=== PATIENT | male | born 1950 | race Caucasian/White ===

== ENCOUNTER 2016-10-27 21:13 | Observation (INO) | payer MEDICARE, OTHER ==
[~2016-10-27] VITALS: Ht 180.3 cm; Wt 99.0 kg
[2016-10-28] MEDS ORDERED: ETODOLAC200 MG PO (02:16)
[2016-10-28] MEDS ORDERED: NORCO 10-325 T1 EACH PO (02:16)
[2016-10-28] MEDS ORDERED: VALIUM 5 MG TAB5 MG PO (02:16)
[2016-10-28] MEDS ORDERED: VENTOLIN INH (02:17)
[2016-10-28] MEDS ORDERED: NEURONTIN 400400 MG PO (02:17)
[2016-10-30 06:05] LABS: HEMOGLOBIN 14.1 gm/dl (14.0-17.5)
[2016-10-30 06:27] LABS: BUN/CREATININE RATIO 28 (0-10)
[2016-10-31] MEDS ORDERED: ASPIRIN CHEWABL81 MG PO (10:37)
[2016-10-31] MEDS ORDERED: PERCOCET 10-321 EACH PO (10:41)
[2016-10-31] MEDS ORDERED: TORADOL 10 MG T10 MG PO (10:44)
[2016-10-31] MEDS ORDERED: PROTONIX40 MG PO (10:45)
== END 2016-10-31 11:21 | disposition home or self-care (01) ==
LOC: M/S 21:13
PROVIDERS: Internal Medicine; ADMIT Internal Medicine
DX: S22.089A Unspecified fracture of T11-T12 vertebra, initial encounter for closed fracture (principal); R94.31 Abnormal electrocardiogram [ECG] [EKG]; J44.9 Chronic obstructive pulmonary disease, unspecified; I25.10 Atherosclerotic heart disease of native coronary artery without angina pectoris; F10.10 Alcohol abuse, uncomplicated; F17.210 Nicotine dependence, cigarettes, uncomplicated; Z79.891 Long term (current) use of opiate analgesic; Z79.899 Other long term (current) drug therapy; Z98.890 Other specified postprocedural states; W19.XXXA Unspecified fall, initial encounter
CPT/HCPCS: 36415; 72146; 72148; 80048; 82550; 82553; 84484; 85014; 85018; 85610; 85730; 93005; 94640; 94664; 97110; 97116; G0378; G0379; G0480; J1885; J2270

== ENCOUNTER 2017-01-04 12:32 | Inpatient (IN) | payer MEDICARE, OTHER ==
[~2017-01-04] VITALS: Ht 182.9 cm; Wt 101.0 kg
[~2017-01-04 12:32] MED LIST: ASPIRIN CHEWABL81 MG PO; ETODOLAC200 MG PO; NEURONTIN 400400 MG PO; NORCO 10-325 T1 EACH PO; PERCOCET 10-321 EACH PO; PROTONIX40 MG PO; TORADOL 10 MG T10 MG PO; VALIUM 5 MG TAB5 MG PO; VENTOLIN INH
[2017-01-04] MEDS ORDERED: NORCO 10-325 T1 EACH PO (18:12)
[2017-01-04] MEDS ORDERED: LISINOPRIL40 MG PO (18:13)
[2017-01-04] MEDS ORDERED: SIMVASTATIN20 MG PO (18:13)
[2017-01-04] MEDS ORDERED: TOPROL XL 25 MG25 MG PO (18:14)
[2017-01-05 05:01] LABS: HEMOGLOBIN 15.2 gm/dl (14.0-17.5); RED BLOOD COUNT 4.81 M/UL (4.20-5.50); WHITE BLOOD COUNT 9.3 K/UL (4.5-11.0)
[2017-01-05 05:16] LABS: BUN/CREATININE RATIO 17 (0-10)
--- NOTE | 2017-01-05 12:56 | NUR ---
SACHA VILLATORO INFORMED OF TROPONIN OF 0.17
[2017-01-06 06:12] LABS: HEMOGLOBIN 13.9 gm/dl (14.0-17.5); RED BLOOD COUNT 4.44 M/UL (4.20-5.50); WHITE BLOOD COUNT 8.3 K/UL (4.5-11.0)
[2017-01-06 06:26] LABS: BUN/CREATININE RATIO 24 (0-10)
[2017-01-07 03:24] LABS: HEMOGLOBIN 13.5 gm/dl (14.0-17.5); RED BLOOD COUNT 4.27 M/UL (4.20-5.50); WHITE BLOOD COUNT 6.7 K/UL (4.5-11.0)
[2017-01-07 03:28] LABS: BUN/CREATININE RATIO 20 (0-10)
[2017-01-08 04:32] LABS: HEMOGLOBIN 14.3 gm/dl (14.0-17.5); RED BLOOD COUNT 4.5 M/UL (4.20-5.50); WHITE BLOOD COUNT 5.7 K/UL (4.5-11.0)
[2017-01-08 04:47] LABS: BUN/CREATININE RATIO 17 (0-10)
[2017-01-09 04:20] LABS: HEMOGLOBIN 15.2 gm/dl (14.0-17.5); RED BLOOD COUNT 4.81 M/UL (4.20-5.50)
[2017-01-09 04:46] LABS: BUN/CREATININE RATIO 21 (0-10)
[2017-01-09] MEDS ORDERED: CORDARONE 200M200 MG PO (13:45)
[2017-01-09] MEDS ORDERED: IMDUR ER TAB 3030 MG PO (13:49)
[2017-01-09] MEDS ORDERED: MULTIVITAMINS1 EAC1 PO (13:50)
[2017-01-09] MEDS ORDERED: HABITROL 21 MG P1 EA TD (13:53)
[2017-01-09] MEDS ORDERED: BRILINTA 90 MG90 MG PO (13:55)
[2017-01-09] MEDS ORDERED: ACETAMINOPHEN325 MG PO (13:59)
[2017-01-09] MEDS ORDERED: NITROGLYCERIN0.4 MG SL (14:01)
== END 2017-01-09 14:52 | disposition home or self-care (01) | DRG 247 ==
LOC: PROG CARE 12:32
PROVIDERS: Internal Medicine Infectious Disease; Internal Medicine Interventional Cardiology; ADMIT Internal Medicine
PROC: 027034Z Dilation of Coronary Artery, One Artery with Drug-eluting Intraluminal Device, Percutaneous Approach (ICD-10-PCS; principal; 2017-01-07)
PROC: B2111ZZ Fluoroscopy of Multiple Coronary Arteries using Low Osmolar Contrast (ICD-10-PCS; principal; 2017-01-07)
DX: I21.4 Non-ST elevation (NSTEMI) myocardial infarction (principal); F10.239 Alcohol dependence with withdrawal, unspecified; S22.088A Other fracture of T11-T12 vertebra, initial encounter for closed fracture; J98.11 Atelectasis; I48.91 Unspecified atrial fibrillation; I25.10 Atherosclerotic heart disease of native coronary artery without angina pectoris; I71.4 Abdominal aortic aneurysm, without rupture; E27.9 Disorder of adrenal gland, unspecified; D69.6 Thrombocytopenia, unspecified; E78.5 Hyperlipidemia, unspecified; F17.210 Nicotine dependence, cigarettes, uncomplicated; I10 Essential (primary) hypertension; G47.33 Obstructive sleep apnea (adult) (pediatric); Z95.5 Presence of coronary angioplasty implant and graft; R06.00 Dyspnea, unspecified; F41.9 Anxiety disorder, unspecified; Z72.3 Lack of physical exercise; Z82.49 Family history of ischemic heart disease and other diseases of the circulatory system; Z82.3 Family history of stroke; Z79.82 Long term (current) use of aspirin; Z79.899 Other long term (current) drug therapy; W18.30XA Fall on same level, unspecified, initial encounter; Y93.9 Activity, unspecified; Y92.9 Unspecified place or not applicable; Z79.891 Long term (current) use of opiate analgesic; J44.9 Chronic obstructive pulmonary disease, unspecified
CPT/HCPCS: 36415; 71020; 78452; 80048; 80053; 82550; 82553; 83735; 83880; 84484; 85025; 85027; 85347; 85610; 85730; 93005; 93017; 94664; 99152; 99153; A9502; C1725; C1769; C1874; C1887; C9600; J0360; J0461; J0583; J1644; J2060; J2250; J2785; J2805; J3010; J7030; J7040; Q0163; Q9963